=== PATIENT | female | born 1995 | race American Indian/Alaskan Native ===

== ENCOUNTER 2019-01-06 06:10 | Day surgery (SDC) | payer BC, MEDICAID ==
--- NOTE | 2019-01-05 20:58 | History and Physical Report ---
History of Present Illness Date of examination: 01/05/19 Chief complaint: Cervical cancer screening, Inability to tolerate in-office examination History of present illness: Pt is a 23 year old -[place] female nulligravida with past medical history significant for autism who presents for exam under anesthesia, breast exam and pap smear secondary to inability to tolerate in-office exam. Past History Past Medical History: other (Autism, Non-verbal ) Past Surgical History: other (GI surgery, eye surgeries ) Family/Genetic History: diabetes, cancer Social history: lives with family, other (Non-verbal ) Medications and Allergies Allergies Allergy/AdvReac Type Severity Reaction Status Date / Time No Known Allergies Allergy Verified 01/05/19 20:53 Home Medications Medication Instructions Recorded Confirmed Last Taken Type Sronyx 0.10-0.02 mg Tablet 1 tab FEEDTUBE DAILY 12/31/18 12/31/18 Unknown History risperiDONE [RisperDAL ORAL LIQD] 3 ml FEEDTUBE BID 12/31/18 12/31/18 Unknown History Active Meds: Active Medications Lactated Ringer's (Lactated Ringers) 1,000 mls @ 75 mls/hr IV DIRECT ROMAN Review of Systems All systems: negative (per pt's mother) - Physical Exam Cardiovascular: Regular rate Lungs: Positive: Clear to auscultation Abdomen: Positive: soft Extremities: Positive: normal Results All other labs normal. Assessment and Plan A: Cervical Cancer Screening Autism Inability to tolerate in-office examination P: Proceed with exam under anesthesia, pap smear and breast examination
[~2019-01-06 06:10] MED LIST: LACTATED RINGERS 1,000 ML IV SCH
[2019-01-06] MEDS ORDERED: VERSED PO NR (06:19)
--- NOTE | 2019-01-06 07:14 | Anesthesia Day of Surgery ---
Anesthesia Day of Surgery - Day of Surgery Patient Examined: Yes Patient H&P Reviewed: Yes Patient is NPO: Yes
--- NOTE | 2019-01-06 07:18 | Anesthesia Consultation ---
Anesthesia Consult and Med Hx Date of service: 01/06/19 - Airway Anesthetic Teeth Evaluation: Poor (UNABLE TO ASSESS AIRWAY) - Pre-Operative Health Status ASA Pre-Surgery Classification: ASA2 Proposed Anesthetic Plan: General - Central Nervous System Hx Neuromuscular Disorder: Yes (Autism and non-verbal. Was 23 weeks premature) Hx Psychiatric Problems: Yes (Self abusive) - Hematic Hx Sickle Cell Disease: Yes (Trait only) - Other Systems Hx Cancer: No
[2019-01-06] MEDS ORDERED: SILVER NITRATE TP ONE (07:23)
[2019-01-06] MEDS ORDERED: METHERGINE IM ONE (07:23)
[2019-01-06] MEDS ORDERED: XYLOCAINE MPF 2% ONE (07:30)
[2019-01-06] MEDS ORDERED: DIPRIVAN 10 MG/ML IV ONE (07:30)
[2019-01-06] MEDS ORDERED: KETALAR ONE (07:43)
[2019-01-06] MEDS ORDERED: ZOFRAN IV PRN (08:00)
[2019-01-06] MEDS ORDERED: SUBLIMAZE IV PRN (08:00)
[2019-01-06 08:36] VITALS: BP 142/84
--- NOTE | 2019-01-06 08:55 | Operative Report ---
Operative Report Operative Report: Date of Procedure: January 06, 2019 Preoperative Diagnosis: 1) Cervical Cancer Screening 2) Autism 3) Inability to tolerate in-office exam Postoperative Diagnosis: Same Procedure: Exam under anesthesia, Breast Exam, Pap Smear Surgeon: Oralia Ennis MD Anesthesia: General with LMA Findings: 1) Symmetric breasts with no skin changes, masses or nipple discharge 2) Normal appearing cervix without lesion EBL: Minimal Urine output: 25 mL prior to the procedure Specimen: Pap Smear to pathology Drains: None Disposition: Stable to PACU Indication for Procedure: The patient is a 23 year old -[place] female nulligravida who presents for exam under anesthesia secondary to inability to tolerate in office exam. Procedure in Detail: After the risks, benefits, alternatives and complications were discussed with the patient's mother, the patient's mother gave informed consent for the procedure. She was then taken to the operating room and placed in the dorsal supine position. She was given anesthesia via mask. She was then placed onto the operating table in the dorsal supine position. She was then placed in the dorsal lithotomy position. A timeout was performed. A digital breast examination was performed on both breast which yielded symmetric breasts without skin changes, masses or nipple discharge. Attention was then turned to the pap smear. The bladder was drained of 25 mL of clear urine. A small bivalve speculum was placed in the vagina for adequate visualization of the cervix. A broom was used to collect a pap smear specimen which was sent to pathology. At this time all instruments were removed from the vagina. A small subcenimeter area on the posterior aspect of the hymenal ring was noted to be bleeding. Silver nitrate was used to obtain hemostasis. At this time the procedure was ended. The patient was replaced in the dorsal supine position and extubated without difficulty. She was then taken to the PACU in stable condition. All instrument and lap counts were correct x 2.
--- NOTE | 2019-01-06 08:57 | Short Stay Summary ---
Short Stay Documentation Date of service: 01/06/19 - History H&P: dictated Social history: lives with family, other (Non-verbal ) - Allergies and Medications Current Medications: Allergies No Known Allergies Allergy (Verified 01/05/19 20:53) Home Medications Medication Instructions Recorded Confirmed Last Taken Type Sronyx 0.10-0.02 mg Tablet 1 tab FEEDTUBE DAILY 12/31/18 12/31/18 01/05/19 22:00 History risperiDONE [RisperDAL ORAL LIQD] 3 ml FEEDTUBE BID 12/31/18 12/31/18 01/05/19 22:00 History Acetaminophen 500 mg PO Q6H PRN #120 ml 01/06/19 Unknown Rx Active Medications Fentanyl (Sublimaze) 50 mcg IV Q5MIN PRN PRN Reason: Pain , Severe (7-10) Stop: 01/06/19 18:00 Lactated Ringer's (Lactated Ringers) 1,000 mls @ 75 mls/hr IV DIRECT ROMAN Last Admin: 01/06/19 07:02 Dose: 75 mls/hr Documented by: Midazolam HCl (Versed) 20 mg PO PREOP NR Stop: 01/06/19 23:59 Last Admin: 01/06/19 06:43 Dose: 20 mg Documented by: Ondansetron HCl (Zofran) 4 mg IV ONCE PRN PRN Reason: Nausea And Vomiting Stop: 01/06/19 16:00 - Brief post op/procedure progress note Date of procedure: 01/06/19 Pre-op diagnosis: Cervical Cancer Screening Post-op diagnosis: same Procedure: Exam under anesthesia, Pap smear, Breast Examination Anesthesia: GETA (LMA ) Findings: 1) Symmetric breasts with no skin changes, masses or nipple discharge 2) Normal appearing cervix without lesion Surgeon: TWILA ENNIS Estimated blood loss: minimal Pathology: list (pap smear) Specimen disposition: to lab ([facility] ) Condition: stable - Hospital course Hospital course: Pt underwent exam under anesthesia with breast exam and pap smear which she tolerated well. She was observed in the PACU until she met discharge criteria. She will follow up in 2 wks in the office with Dr Ennis. - Disposition Condition at discharge: Stable Disposition: DC- TO HOME OR SELFCARE - Discharge Diagnoses (1) Cervical cancer screening Status: Acute (2) Autism Status: Acute Short Stay Discharge Plan Activity: no restrictions Weight Bearing Status: Full Weight Bearing Diet: regular Follow up with: MARCELO MACHADO MD [Primary Care Provider] - 7 Days TWILA ENNIS MD [Staff Physician] - 01/19/19 (Please call the office to schedule appt at 9 am ) Forms: Outpatient [facility] DC Inst. Prescriptions: Acetaminophen 500 mg PO Q6H PRN #120 ml PRN Reason: Pain, Moderate (4-6)
--- NOTE | 2019-01-06 12:25 | Post Anesthesia Evaluation ---
- Post Anesthesia Evaluation Airway Patent: Yes Stable Respiratory Function: Yes Nausea/Vomiting: No Temp > 96.8F: Yes Pain Manageable: Yes Adequeate Hydration: Yes Anesthesia Complications: No
== END 2019-01-06 15:33 | disposition home or self-care (01) ==
LOC: OR 06:10
PROVIDERS: ATTEND Obstetrics & Gynecology
DX: Z12.4 Encounter for screening for malignant neoplasm of cervix (principal); F84.0 Autistic disorder; Z83.3 Family history of diabetes mellitus; Z79.899 Other long term (current) drug therapy; Z98.890 Other specified postprocedural states
CPT/HCPCS: 57410; J2704; J3010; J7120; J2210

== ENCOUNTER 2021-11-21 05:51 | Day surgery (SDC) | payer BC, MEDICAID ==
[2021-11-21] MEDS ORDERED: MIDAZOLAM 10 MG/5 ML ORAL LIQD FEEDTUBE NR ×2 (06:00)
[2021-11-21] MEDS ORDERED: LACTATED RINGERS 1,000 ML IV SCH (06:00)
--- NOTE | 2021-11-21 07:08 | History and Physical Report ---
History of Present Illness Date of examination: 11/21/21 Chief complaint: Developmental Delay, Inability to Tolerate In-Office Exam History of present illness: Pt is a 25 year old female nulligravida who presents for exam under anesthesia and pap smear due to inability to tolerate in-office exam. Past History Past Medical History: other (Developmental Delay, Autism) Past Surgical History: no surgical history Social history: other (Non-verbal ) - Obstetrical History : 0 Medications and Allergies Allergies Allergy/AdvReac Type Severity Reaction Status Date / Time No Known Allergies Allergy Verified 01/05/19 20:53 Home Medications Medication Instructions Recorded Confirmed Last Taken Type risperiDONE [RisperDAL ORAL LIQD] 3 ml FEEDTUBE BID 12/31/18 12/31/18 01/05/19 22:00 History Junel 1 mg-20 Mcg Tablet 1 mg FEEDTUBE DAILY 11/14/21 11/14/21 Unknown History Active Meds: Active Medications Lactated Ringer's (Lactated Ringers) 1,000 mls @ 100 mls/hr IV DIRECT ROMAN Stop: 11/21/21 23:59 Midazolam HCl (Midazolam 10 Mg/5 Ml Oral Liqd) 20 mg FEEDTUBE PREOP NR Stop: 11/21/21 23:59 Review of Systems All systems: negative - Physical Exam Breasts: Positive: deferred Cardiovascular: Regular rate Lungs: Positive: Clear to auscultation Abdomen: Positive: soft Extremities: Positive: normal Results All other labs normal. Assessment and Plan A: Developmental delay with inability to tolerate in-office exam Cervical Cancer Screening P: Proceed with exam under anesthesia, clinical breast examination, and pap smear collection
[2021-11-21] MEDS ORDERED: MIDAZOLAM 2 MG/2 ML INJ ONE (07:10)
[2021-11-21] MEDS ORDERED: KETAMINE/STERILE WATER 50 MG/ML SYRINGE ONE (07:10)
[2021-11-21] MEDS ORDERED: fentaNYL 100 MCG/2 ML INJ ONE (07:10)
[2021-11-21] MEDS ORDERED: SILVER NITRATE APPLICATOR 1 EA TP ONE ×2 (07:19→08:25)
--- NOTE | 2021-11-21 07:36 | Anesthesia Consultation ---
Anesthesia Consult and Med Hx Date of service: 11/21/21 - Airway Intubation Access Assessment: Possibly Difficult (uncoorperative with exam; previous LMA) - Pre-Operative Health Status ASA Pre-Surgery Classification: ASA2 Proposed Anesthetic Plan: General - Pulmonary Hx Respiratory Symptoms: No - Cardiovascular System Hx Hypertension: No Hx Cardia Arrhythmia: No - Central Nervous System Hx Seizures: No CVA: No Hx Psychiatric Problems: Yes (autism (nonverbal, self-harming behavior)) - Gastrointestinal Hx Gastroesophageal Reflux Disease: No (g-tube in place) - Endocrine Hx Renal Disease: No Hx Liver Disease: No Hx Insulin Dependent Diabetes: No Hx Non-Insulin Dependent Diabetes: No Hx Thyroid Disease: No - Other Systems Hx Obesity: No - Additional Comments Anesthesia Medical History Comments: Medical hx obtained from mother at bedside. No hx anesthetic complications.
--- NOTE | 2021-11-21 07:36 | Anesthesia Day of Surgery ---
Anesthesia Day of Surgery - Day of Surgery Patient Examined: Yes Patient H&P Reviewed: Yes Patient is NPO: Yes
[2021-11-21] MEDS ORDERED: propofoL 200 MG/20 ML VIAL IV ONE ×2 (08:02→08:19)
[2021-11-21] MEDS ORDERED: SODIUM CHLORIDE 0.9% IRR 1,500 ML BOTTLE IR ONE (08:25)
--- NOTE | 2021-11-21 09:03 | Operative Report ---
Operative Report Operative Report: Date of Procedure: November 21, 2021 Preoperative Diagnosis: 1) Cervical Cancer Screening 2) Autism 3) Inability to tolerate in-office exam Postoperative Diagnosis: Same Procedure: Pelvic exam under anesthesia, Breast Exam, Pap Smear Surgeon: Oralia Ennis MD Anesthesia: MAC Findings: 1) Symmetric breasts with no skin changes, masses or nipple discharge 2) Normal appearing cervix without lesion EBL: 10 mL Urine output: 75 mL prior to the procedure Specimen: Pap Smear to pathology ([facility]) Drains: None Disposition: Stable to PACU Indication for Procedure: The patient is a 25 year old -[place] female nulligravida who presents for pelvic exam under anesthesia, breast examination and cervical cancer screening secondary to inability to tolerate in office exam. Procedure in Detail: After the risks, benefits, alternatives and complications were discussed with the patient's mother, the patient's mother gave informed consent for the procedure. She was then taken to the operating room and placed in the dorsal supine position. She was given anesthesia via mask. She was then placed onto the operating table in the dorsal supine position. She was then placed in the dorsal lithotomy position. A timeout was performed. A digital breast examination was performed on both breasts which yielded symmetric breasts without skin changes, masses or nipple discharge. Attention was then turned to the pap smear. The bladder was drained of 75 mL of clear urine. Some vaginal bleeding was noted after preparation and speculum placement. A small bivalve speculum was placed in the vagina for adequate visualization of the cervix. A broom was used to collect a pap smear specimen which was sent to pathology. At this time all instruments were removed from the vagina. A small subcenimeter area on the posterior aspect of the hymenal ring was noted to be bleeding. Silver nitrate was used to obtain hemostasis. At this time the procedure was ended. The patient was replaced in the dorsal supine position and extubated without difficulty. She was then taken to the PACU in stable condition. All instrument and lap counts were correct x 2.
--- NOTE | 2021-11-21 09:05 | Short Stay Summary ---
Short Stay Documentation Date of service: 11/21/21 - History H&P: dictated Social history: other (Non-verbal ) - Allergies and Medications Current Medications: Allergies No Known Allergies Allergy (Verified 01/05/19 20:53) Home Medications Medication Instructions Recorded Confirmed Last Taken Type risperiDONE [RisperDAL ORAL LIQD] 3 ml FEEDTUBE BID 12/31/18 12/31/18 01/05/19 22:00 History Junel 1 mg-20 Mcg Tablet 1 mg FEEDTUBE DAILY 11/14/21 11/14/21 Unknown History Active Medications Lactated Ringer's (Lactated Ringers) 1,000 mls @ 100 mls/hr IV DIRECT ROMAN Stop: 11/21/21 23:59 Midazolam HCl (Midazolam 10 Mg/5 Ml Oral Liqd) 20 mg FEEDTUBE PREOP NR Stop: 11/21/21 23:59 - Physical exam Breasts: deferred - Brief post op/procedure progress note Date of procedure: 11/21/21 Pre-op diagnosis: Cervical Cancer Screening, Inability to tolerate in office exlyn m, Autism Post-op diagnosis: same Procedure: Pelvic exam under anesthesia, Breast exam, Pap smear Anesthesia: MAC Findings: 1) Symmetric breasts with no skin changes, masses or nipple discharge 2) Normal appearing cervix without lesion Surgeon: TWILA FIGUEREDO Estimated blood loss: minimal (10 mL) Pathology: list (pap smear to pathology ([facility])) Specimen disposition: to lab Condition: stable - Hospital course Hospital course: Patient underwent pelvic examination under anesthesia, breast examination and Pap smear which she tolerated well. She was observed in the PACU until she met discharge criteria. She will follow-up in the office in 2 weeks. - Disposition Condition at discharge: Stable Disposition: 01 HOME / SELF CARE / HOMELESS - Discharge Diagnoses (1) Autism Status: Acute (2) Cervical cancer screening Status: Acute Short Stay Discharge Plan Activity: no restrictions Weight Bearing Status: Full Weight Bearing Diet: regular Follow up with: MARCELO MACHADO MD [Primary Care Provider] - 7 Days TWILA FIGUEREDO MD [Staff Physician] - 12/07/21 (Appt made on 12/07/21 at 1030 am )
--- NOTE | 2021-11-21 13:51 | Post Anesthesia Evaluation ---
- Post Anesthesia Evaluation Patient Participated: No (baseline mentation) Airway Patent: Yes Stable Respiratory Function: Yes Nausea/Vomiting: No Temp > 96.8F: Yes Pain Manageable: Yes Adequeate Hydration: Yes Anesthesia Complications: No Other Comments: Patient's mother at bedside while in PACU for patient comfort.
[2021-11-21 14:59] VITALS: BP 105/62
== END 2021-11-21 10:15 | disposition home or self-care (01) ==
LOC: OR 05:51
PROVIDERS: ATTEND Obstetrics & Gynecology
DX: Z12.4 Encounter for screening for malignant neoplasm of cervix (principal); F84.0 Autistic disorder; D64.9 Anemia, unspecified; Z79.899 Other long term (current) drug therapy; Z98.890 Other specified postprocedural states
CPT/HCPCS: G0101; J2250; J2704; J3010; J3490; J7120